=== PATIENT | female | born 1970 | race Caucasian/White ===

== ENCOUNTER → 2020-11-01 | Outpatient (CLI) | payer BC ==
[~2020-11-01] MED LIST: FLEXERIL 10 MG10 MG PO; NORFLEX 100 MG100 MG PO; PREDNISONE 50 M50 MG PO
== END ==
LOC: RAD 11:08
DX: M43.16 Spondylolisthesis, lumbar region (principal); Z98.1 Arthrodesis status
CPT/HCPCS: 72110

== ENCOUNTER → 2021-01-28 | Outpatient (CLI) | payer BC | LOC: MAMO 10:17 | DX: Z12.31 Encounter for screening mammogram for malignant neoplasm of breast (principal) | CPT/HCPCS: 77063; 77067 ==

== ENCOUNTER → 2021-05-24 | Outpatient (CLI) | payer BC | LOC: EROP 07:02 | DX: U07.1 COVID-19 (principal) | CPT/HCPCS: U0002 ==

== ENCOUNTER → 2021-07-25 | Outpatient (CLI) | payer BC | LOC: RAD 07:51 | DX: M51.16 Intervertebral disc disorders with radiculopathy, lumbar region (principal); M48.07 Spinal stenosis, lumbosacral region; Z98.1 Arthrodesis status | CPT/HCPCS: 36415; 72132; 85049; 85610; 85730 ==

== ENCOUNTER 2021-09-09 04:05 | Emergency (ER) | payer BC ==
[2021-09-09 04:44] LABS: HEMOGLOBIN 13.9 gm/dl (12.3-15.3); RED BLOOD COUNT 4.6 M/UL (4.00-5.10); WHITE BLOOD COUNT 5.9 K/UL (4.5-11.0)
[2021-09-09 05:08] LABS: BUN/CREATININE RATIO 13 (0-10)
== END 2021-09-09 08:01 | disposition home or self-care (01) ==
LOC: ER1 04:05
PROVIDERS: Family Medicine
DX: R07.2 Precordial pain (principal); E87.6 Hypokalemia; F41.9 Anxiety disorder, unspecified; K21.9 Gastro-esophageal reflux disease without esophagitis; Z86.73 Personal history of transient ischemic attack (TIA), and cerebral infarction without residual deficits; Z88.8 Allergy status to other drugs, medicaments and biological substances
CPT/HCPCS: 71045; 80053; 82550; 82553; 83874; 84484; 85025; 85610; 93005; 96374; 99285; J2405

== ENCOUNTER → 2021-10-15 | Outpatient (CLI) | payer BC ==
[2021-10-15 11:47] LABS: HEMOGLOBIN 13.4 gm/dl (12.3-15.3); RED BLOOD COUNT 4.51 M/UL (4.00-5.10); WHITE BLOOD COUNT 6.4 K/UL (4.5-11.0)
[2021-10-15 12:18] LABS: BUN/CREATININE RATIO 12 (0-10)
== END ==
LOC: LAB 10:54
PROVIDERS: Family Medicine
DX: R10.84 Generalized abdominal pain (principal)
CPT/HCPCS: 36415; 80053; 82150; 83690; 85027

== ENCOUNTER → 2021-10-18 | Emergency (ER) | payer BC | END | disposition left against medical advice (07) | LOC: ER1 13:45 | DX: Z53.21 Procedure and treatment not carried out due to patient leaving prior to being seen by health care provider (principal) ==

== ENCOUNTER → 2022-02-10 | Outpatient (CLI) | payer BC | LOC: MAMO 14:17 | DX: Z12.31 Encounter for screening mammogram for malignant neoplasm of breast (principal) | CPT/HCPCS: 77063; 77067 ==